=== PATIENT | male | born 2000 | race Caucasian/White ===

== ENCOUNTER 2021-02-13 20:22 | Emergency (ER) | payer BC, OTHER ==
[2021-02-13 20:47] VITALS: BP 122/73; PULSE 68; TEMP 98.4; BMI 20.7
[2021-02-13] MEDS ORDERED: DIPHTH,PERTUSS(ACELL),TET 0.5 ML DISP.SYRIN IM ONE ×2 (20:56→21:28)
== END 2021-02-13 21:53 | disposition home or self-care (01) ==
LOC: FER 20:22
PROC: 0HQFXZZ Repair Right Hand Skin, External Approach (ICD-10-PCS; principal; 2021-02-13)
PROC: 0HQDXZZ Repair Right Lower Arm Skin, External Approach (ICD-10-PCS; 2021-02-13)
PROC: 3E0234Z Introduction of Serum, Toxoid and Vaccine into Muscle, Percutaneous Approach (ICD-10-PCS; 2021-02-13)
DX: S61.411A Laceration without foreign body of right hand, initial encounter (principal); W25.XXXA Contact with sharp glass, initial encounter; Y92.9 Unspecified place or not applicable
CPT/HCPCS: 90715; 99283-25

== ENCOUNTER 2021-02-23 17:56 | Emergency (ER) | payer BC, OTHER ==
[2021-02-23 18:34] VITALS: BP 100/64; PULSE 66; TEMP 97.6; BMI 20.7
== END 2021-02-23 18:21 | disposition home or self-care (01) ==
LOC: FER 17:56
DX: Z48.02 Encounter for removal of sutures (principal)
CPT/HCPCS: 99281-25